=== PATIENT | male | born 1955 | race Two or more races ===

== ENCOUNTER 2020-12-04 09:30 | Inpatient (IN) | payer MEDICAID ==
[~2020-12-04] VITALS: Ht 175.3 cm; Wt 93.6 kg
[2020-12-04] MEDS ORDERED: SODIUM CHLORIDE 0.9% 1,000 ML IV ONE ×2 (10:15)
[2020-12-04] MEDS ORDERED: cefTRIAXone 1GM/50ML D5W 50 ML IV ONE (10:15)
[2020-12-04] MEDS ORDERED: CLINDAMYCIN 600MG IV 50 ML IV ONE (10:15)
[2020-12-04 10:46] LABS: Urine WBC None Seen /hpf (0 - 3)
[2020-12-04 10:56] LABS: Urine Bacteria NONE SEEN /hpf (None Seen); Urine Blood 1+ /uL (Negative); Urine Specific Gravity 1.003 (1.001-1.035)
[2020-12-04 10:59] LABS: Basophils # (auto) 0 10 ^3/uL (0-0.2); Basophils % (auto) 0.6 % (0.0-2.0); Eosinophils # (auto) 0 10 ^3/uL (0-0.8); Eosinophils % (auto) 0.2 % (0.0-7.0); Hematocrit 43.2 % (41.0-53.0); Lymphocytes # (auto) 1.4 10 ^3/uL (0.4-5.4); Lymphocytes % (auto) 19.9 % (10.0-50.0); Mean Corpuscular Hemoglobin 33.1 pg (28.0-32.0); Mean Corpuscular Hgb Conc. 34.7 g/dL (32.0-36.0); Mean Corpuscular Volume 95.3 fL (80.0-100.0); Monocytes # (auto) 0.6 10 ^3/uL (0-1.3); Monocytes % (auto) 8.8 % (0.0-12.0); Neutrophils % (auto) 70.5 % (37.0-80.0); Nucleated Red Blood Cells % 0.1 %; Platelet Count (auto) 282 10^3/uL (140-450); Red Blood Cells 4.53 10^6/uL (4.5-5.90); Red Cell Distribution Width 13.6 % (11.8-14.3)
[2020-12-04 11:07] LABS: INR 1.01 (0.9-1.15); Partial Thromboplastin Time 28.8 sec (23.0-31.2)
[2020-12-04 11:29] LABS: Anion Gap 11 (5-15); Blood Urea Nitrogen 3 mg/dL (7-18); Calcium 8.3 mg/dL (8.5-10.1); Carbon Dioxide 22 mmol/L (21-32); Chloride 105 mmol/L (98-107); Glucose 125 mg/dL (74-106); Potassium 3.5 mmol/L (3.5-5.1); Sodium 138 mmol/L (136-145)
[2020-12-04 11:34] LABS: Alanine Aminotransferase 24 U/L (16-61); Alkaline Phosphatase 88 U/L (45-117); Aspartate Aminotransferase 26 U/L (15-37); BUN/Creatinine Ratio 6.3; Bilirubin, Total 0.4 mg/dL (0.2-1.0); GFR African American 226 mL/min; GFR Non-African American 187 mL/min
[2020-12-04 11:35] LABS: Lactic Acid w/Reflex 2.1 mmol/L (0.4-2.0)
[2020-12-04] MEDS ORDERED: MORPHINE SULF INJ 2 MG/ML SYRINGE 1ML IV PRN ×3 (12:30→15:30)
[2020-12-04] MEDS ORDERED: NITROGLYCERIN 0.4 MG SL TAB SL PRN ×2 (12:30→15:30)
[2020-12-04] MEDS ORDERED: methylPREDNISolone SOD SUCC 125 MG/2 ML VL IV ONE (15:30)
[2020-12-04] MEDS ORDERED: ACETAMINOPHEN 325 MG TAB PO PRN (15:30)
[2020-12-04] MEDS ORDERED: IPRATROPIUM BROM 0.5 MG/2.5ML INH SOL NEB ONE (15:30)
[2020-12-04] MEDS ORDERED: ONDANSETRON HCL 4 MG/2 ML VIAL IV PRN (15:30)
[2020-12-04] MEDS ORDERED: VANCOMYCIN PER PHARMACY 0 MG IV SCH (15:30)
[2020-12-04] MEDS ORDERED: ALBUTEROL SULF 2.5 MG/0.5ML(0.5%) NEB SOLN NEB PRN (15:30)
[2020-12-04] MEDS ORDERED: HYDROcodone-ACET 5/325MG TAB PO PRN (15:30)
[2020-12-04] MEDS ORDERED: ALUM & MAG HYDROX-SIMETH LIQ(MAALOX) 30 ML PO PRN (15:30)
[2020-12-04] MEDS ORDERED: ALBUTEROL SULF 2.5 MG/0.5ML(0.5%) NEB SOLN NEB ONE (15:30)
[2020-12-04] MEDS ORDERED: hydrALAZINE HCL 20 MG/ML VL IV PRN (15:30)
[2020-12-04] MEDS ORDERED: PANTOPRAZOLE 40 MG/10 ML VIAL INJ IV ONE (15:30)
[2020-12-04] MEDS ORDERED: LORazepam 0.5 MG TAB PO PRN (15:30)
[2020-12-04] MEDS ORDERED: PIPERACILLIN-TAZOB 3.375GM 100 ML IV ONE (15:30)
[2020-12-04] MEDS ORDERED: DOCUSATE SOD 100 MG CAP PO PRN (15:30)
[2020-12-04 16:00] VITALS: BP 167/96
[2020-12-04] MEDS ORDERED: IPRATROPIUM BROM 0.5 MG/2.5ML INH SOL NEB PRN (16:00)
[2020-12-04] MEDS ORDERED: LISINOPRIL 20 MG TAB PO ONE (16:00)
[2020-12-04] MEDS ORDERED: LORazepam 2MG/ML-1ML VIAL IV PRN (16:00)
[2020-12-04 16:45] VITALS: BP 159/87
[2020-12-04] MEDS: SUCRALFATE 1 GM/10 ML ORAL SUSP PO SCH ×2 (17:00→22:00)
[2020-12-04] MEDS: SODIUM CHLORIDE 0.9% 1,000 ML IV SCH (17:14)
[2020-12-04] MEDS ORDERED: IPRATROPIUM BROM 0.5 MG/2.5ML INH SOL NEB SCH (18:00)
[2020-12-04 18:01] LABS: Cholesterol 163 mg/dL (< 200)
[2020-12-04 18:05] LABS: HDL Cholesterol 49 mg/dL (40-59); LDL Cholesterol 97 mg/dL (< 100); Triglycerides 152 mg/dL (< 150)
[2020-12-04 20:00] VITALS: BP 158/91
[2020-12-04] MEDS: VANCOMYCIN 1GM/250ML 250 ML IV SCH (20:00)
[2020-12-04 22:00] VITALS: BP 158/91
[2020-12-04] MEDS: methylPREDNISolone SOD SUCC 40 MG/ML VL IV SCH (22:00)
[2020-12-04] MEDS ORDERED: ATORVASTATIN 20 MG TAB PO SCH (22:00)
[2020-12-05 00:22] LABS: Amphetamine Screen, Urine NEGATIVE (NEGATIVE); Barbiturate Scree,Urine NEGATIVE (NEGATIVE); Benzodiazephine Screen, Urine NEGATIVE (NEGATIVE); Cannabinoid Screen, Urine NEGATIVE (NEGATIVE); Cocaine Screen, Urine NEGATIVE (NEGATIVE); Opiate Scree,Urine NEGATIVE (NEGATIVE); Phencyclidine Screen, Urine NEGATIVE (NEGATIVE)
[2020-12-05] MEDS: VANCOMYCIN 1GM/250ML 250 ML IV SCH (04:00)
[2020-12-05 05:00] VITALS: BP 167/85
[2020-12-05] MEDS: methylPREDNISolone SOD SUCC 40 MG/ML VL IV SCH (05:50)
[2020-12-05] MEDS: PIPERACILLIN-TAZOB 3.375GM 100 ML IV SCH ×2 (06:10)
[2020-12-05] MEDS: SUCRALFATE 1 GM/10 ML ORAL SUSP PO SCH (07:00)
[2020-12-05 07:14] LABS: Basophils # (auto) 0 10 ^3/uL (0-0.2); Basophils % (auto) 0.1 % (0.0-2.0); Eosinophils # (auto) 0 10 ^3/uL (0-0.8); Hematocrit 45.1 % (41.0-53.0); Hemoglobin 15.8 g/dL (13.5-17.5); Lymphocytes % (auto) 12.8 % (10.0-50.0); Mean Corpuscular Hemoglobin 33.6 pg (28.0-32.0); Mean Corpuscular Hgb Conc. 34.9 g/dL (32.0-36.0); Mean Corpuscular Volume 96.1 fL (80.0-100.0); Monocytes # (auto) 0.1 10 ^3/uL (0-1.3); Neutrophils % (auto) 86.1 % (37.0-80.0); Platelet Count (auto) 298 10^3/uL (140-450); Red Cell Distribution Width 13.6 % (11.8-14.3); White Blood Cell 8.2 10^3/uL (4.4-10.8)
[2020-12-05 07:18] LABS: INR 1.02 (0.9-1.15); Partial Thromboplastin Time 30.1 sec (23.0-31.2)
[2020-12-05 07:40] LABS: Chloride 102 mmol/L (98-107); Sodium 133 mmol/L (136-145)
[2020-12-05 07:57] LABS: Alanine Aminotransferase 22 U/L (16-61); Albumin 2.9 g/dL (3.4-5.0); Alkaline Phosphatase 95 U/L (45-117); Anion Gap 11 (5-15); Aspartate Aminotransferase 24 U/L (15-37); BUN/Creatinine Ratio 7.4; Bilirubin, Total 0.6 mg/dL (0.2-1.0); Blood Urea Nitrogen 5 mg/dL (7-18); Calcium 8.6 mg/dL (8.5-10.1); Carbon Dioxide 20 mmol/L (21-32); GFR African American 151 mL/min; GFR Non-African American 125 mL/min; Glucose 223 mg/dL (74-106); Magnesium 2.7 mg/dL (1.6-2.6); Phosphorus 2.6 mg/dL (2.5-4.90); Total Protein 7.8 g/dL (6.4-8.2)
[2020-12-05 09:03] VITALS: BP 176/99
[2020-12-05] MEDS: ASPirin 81 mg TAB PO SCH (09:07)
[2020-12-05] MEDS: LISINOPRIL 20 MG TAB PO SCH (09:08)
[2020-12-05] MEDS: SODIUM CHLORIDE 0.9% 1,000 ML IV SCH (09:12)
[2020-12-05] MEDS ORDERED: PANTOPRAZOLE 40 MG/10 ML VIAL INJ IV SCH (10:00)
[2020-12-05] MEDS ORDERED: LEVALBUTEROL HCL 1.25 MG/3 ML NEB NEB PRN (13:00)
[2020-12-05] MEDS ORDERED: PIPERACILLIN-TAZOB 3.375GM 100 ML IV SCH (13:00)
[2020-12-05] MEDS ORDERED: chlordiazePOXIDE HCL 5 MG CAP PO PRN (13:00)
[2020-12-05] MEDS ORDERED: METOPROLOL TARTRATE 25 MG TAB PO ONE (13:00)
[2020-12-05] MEDS: NICOTINE 14 MG/24HR TOPICAL PATCH TD SCH (13:02)
[2020-12-05 13:07] VITALS: BP 144/83
[2020-12-05] MEDS: cefTRIAXone 1GM/50ML D5W 50 ML IV SCH (13:52)
[2020-12-05] MEDS: CLINDAMYCIN 600MG IV 50 ML IV SCH ×2 (13:56→22:00)
[2020-12-05] MEDS ORDERED: THIAMINE HCL 100 MG TAB PO ONE (14:15)
[2020-12-05 16:30] VITALS: BP 138/90
[2020-12-05] MEDS: IPRATROPIUM BROM 0.5 MG/2.5ML INH SOL NEB SCH (18:29)
[2020-12-05] MEDS: BUDESONIDE (INHALATION) 0.5 MG/2 ML NEB NEB SCH (18:30)
[2020-12-05] MEDS: LEVALBUTEROL HCL 1.25 MG/3 ML NEB NEB SCH (18:30)
[2020-12-05 20:00] VITALS: BP 126/75
[2020-12-05 22:00] VITALS: BP 126/75
[2020-12-05] MEDS: ATORVASTATIN 20 MG TAB PO SCH (22:00)
[2020-12-05] MEDS: METOPROLOL TARTRATE 25 MG TAB PO SCH (22:00)
[2020-12-06 05:00] VITALS: BP 150/97
[2020-12-06] MEDS: CLINDAMYCIN 600MG IV 50 ML IV SCH ×3 (06:00→22:00)
[2020-12-06 06:33] LABS: Basophils # (auto) 0 10 ^3/uL (0-0.2); Basophils % (auto) 0.3 % (0.0-2.0); Eosinophils # (auto) 0 10 ^3/uL (0-0.8); Hematocrit 43.9 % (41.0-53.0); Hemoglobin 15.4 g/dL (13.5-17.5); Lymphocytes # (auto) 1.8 10 ^3/uL (0.4-5.4); Lymphocytes % (auto) 17.6 % (10.0-50.0); Mean Corpuscular Hemoglobin 33.4 pg (28.0-32.0); Mean Corpuscular Volume 95.4 fL (80.0-100.0); Monocytes # (auto) 0.9 10 ^3/uL (0-1.3); Monocytes % (auto) 8.4 % (0.0-12.0); Neutrophils # (auto) 7.7 10 ^3/uL (1.6-8.6); Neutrophils % (auto) 73.7 % (37.0-80.0); Nucleated Red Blood Cells % 0.1 %; Platelet Count (auto) 289 10^3/uL (140-450); Red Cell Distribution Width 13.4 % (11.8-14.3); White Blood Cell 10.4 10^3/uL (4.4-10.8)
[2020-12-06 06:47] LABS: INR 1.02 (0.9-1.15); Partial Thromboplastin Time 27.9 sec (23.0-31.2)
[2020-12-06 06:50] LABS: Calcium 8.6 mg/dL (8.5-10.1); Potassium 3.7 mmol/L (3.5-5.1)
[2020-12-06 06:52] LABS: BUN/Creatinine Ratio 15.1
[2020-12-06] MEDS: cloNIDine HCL 0.1 MG TAB PO PRN (08:27)
[2020-12-06 09:00] VITALS: BP 143/82
[2020-12-06] MEDS: cefTRIAXone 1GM/50ML D5W 50 ML IV SCH (09:00)
[2020-12-06] MEDS: LEVALBUTEROL HCL 1.25 MG/3 ML NEB NEB SCH ×2 (09:56→18:39)
[2020-12-06] MEDS: BUDESONIDE (INHALATION) 0.5 MG/2 ML NEB NEB SCH ×2 (09:56→18:39)
[2020-12-06] MEDS: IPRATROPIUM BROM 0.5 MG/2.5ML INH SOL NEB SCH ×2 (09:56→18:39)
[2020-12-06] MEDS: ASPirin 81 mg TAB PO SCH (10:00)
[2020-12-06] MEDS: THIAMINE HCL 100 MG TAB PO SCH (10:00)
[2020-12-06] MEDS: LISINOPRIL 20 MG TAB PO SCH (10:00)
[2020-12-06] MEDS: METOPROLOL TARTRATE 25 MG TAB PO SCH ×2 (10:00→22:00)
[2020-12-06] MEDS: NICOTINE 14 MG/24HR TOPICAL PATCH TD SCH (10:00)
[2020-12-06] MEDS ORDERED: MIDAZOLAM HCL 1MG/1ML-2 ML VIAL ONE (10:48)
[2020-12-06] MEDS ORDERED: LIDOCAINE 2%HCL (LOCAL ANESTH.) INJ 20ML MDV ONE (10:48)
[2020-12-06] MEDS ORDERED: fentaNYL CITRATE 100 MCG/2 ML VL ONE (10:48)
[2020-12-06] MEDS ORDERED: SODIUM CHL 0.9% 0 ML ONE (10:48)
[2020-12-06] MEDS ORDERED: ANGIOMAX 250 MG VIAL IV ONE (10:48)
[2020-12-06 13:00] VITALS: BP 131/75
[2020-12-06] MEDS: SODIUM CHLOR 0.9% PF (SALINE LOCK) 10ML VIAL/SYR IV SCH ×2 (15:43→22:00)
[2020-12-06 17:00] VITALS: BP 134/71
[2020-12-06 20:00] VITALS: BP 148/77
[2020-12-06 21:29] VITALS: BP 148/77
[2020-12-06] MEDS: ATORVASTATIN 20 MG TAB PO SCH (22:00)
[2020-12-07 04:56] VITALS: BP 140/85
[2020-12-07] MEDS: CLINDAMYCIN 600MG IV 50 ML IV SCH ×3 (05:54→22:16)
[2020-12-07] MEDS: SODIUM CHLOR 0.9% PF (SALINE LOCK) 10ML VIAL/SYR IV SCH ×3 (05:55→22:16)
[2020-12-07 09:00] VITALS: BP 154/92
[2020-12-07] MEDS: cefTRIAXone 1GM/50ML D5W 50 ML IV SCH (09:17)
[2020-12-07] MEDS: ASPirin 81 mg TAB PO SCH (09:17)
[2020-12-07] MEDS: METOPROLOL TARTRATE 25 MG TAB PO SCH ×2 (09:18→22:16)
[2020-12-07] MEDS: THIAMINE HCL 100 MG TAB PO SCH (09:18)
[2020-12-07] MEDS: LISINOPRIL 20 MG TAB PO SCH (09:19)
[2020-12-07] MEDS: NICOTINE 14 MG/24HR TOPICAL PATCH TD SCH (09:20)
[2020-12-07] MEDS: BUDESONIDE (INHALATION) 0.5 MG/2 ML NEB NEB SCH ×2 (10:04→21:55)
[2020-12-07] MEDS: IPRATROPIUM BROM 0.5 MG/2.5ML INH SOL NEB SCH ×2 (10:04→21:55)
[2020-12-07] MEDS: LEVALBUTEROL HCL 1.25 MG/3 ML NEB NEB SCH ×2 (10:04→21:55)
[2020-12-07] MEDS ORDERED: LIDOCAINE 1% (LOCAL ANESTH.) PF 5ml SDV ID ONE (11:30)
[2020-12-07] MEDS ORDERED: ceFAZolin 1GM/50ML 50 ML IV ONE (12:14)
[2020-12-07 12:36] VITALS: BP 135/82
[2020-12-07 16:27] VITALS: BP 135/82
[2020-12-07 16:42] VITALS: BP 135/77
[2020-12-07 22:00] VITALS: BP 146/92
[2020-12-07] MEDS: ATORVASTATIN 20 MG TAB PO SCH (22:16)
[2020-12-08 05:00] VITALS: BP 135/73
[2020-12-08] MEDS: CLINDAMYCIN 600MG IV 50 ML IV SCH ×3 (06:21→22:37)
[2020-12-08] MEDS: SODIUM CHLOR 0.9% PF (SALINE LOCK) 10ML VIAL/SYR IV SCH ×3 (06:21→22:37)
[2020-12-08 08:49] VITALS: BP 145/83
[2020-12-08] MEDS: cefTRIAXone 1GM/50ML D5W 50 ML IV SCH (08:54)
[2020-12-08] MEDS: BUDESONIDE (INHALATION) 0.5 MG/2 ML NEB NEB SCH ×2 (10:00→22:47)
[2020-12-08] MEDS: IPRATROPIUM BROM 0.5 MG/2.5ML INH SOL NEB SCH ×2 (10:00→22:47)
[2020-12-08] MEDS: ASPirin 81 mg TAB PO SCH (10:00)
[2020-12-08] MEDS: LEVALBUTEROL HCL 1.25 MG/3 ML NEB NEB SCH ×2 (10:00→22:47)
[2020-12-08] MEDS ORDERED: ceFAZolin 1GM/50ML 50 ML IV ONE (10:07)
[2020-12-08] MEDS ORDERED: LIDOCAINE 2% (LOCAL ANESTH.) PF 5ml SDV ONE (10:38)
[2020-12-08] MEDS ORDERED: MIDAZOLAM HCL 1MG/1ML-2 ML VIAL ONE (10:38)
[2020-12-08] MEDS ORDERED: KETAMINE HCL 10 ML ONE (10:38)
[2020-12-08] MEDS ORDERED: ONDANSETRON HCL 4 MG/2 ML VIAL ONE (10:38)
[2020-12-08] MEDS ORDERED: PROPOFOL 10 MG/ML 20 ML IV ONE (10:38)
[2020-12-08] MEDS ORDERED: GLYCOPYRROLATE 0.2 MG/ML 1ML VIAL ONE (10:38)
[2020-12-08] MEDS ORDERED: ceFAZolin 1GM VL ONE (11:44)
[2020-12-08] MEDS ORDERED: fentaNYL CITRATE 100 MCG/2 ML VL IV ONE (11:48)
[2020-12-08] MEDS ORDERED: ALBUTEROL SULF 2.5 MG/0.5ML(0.5%) NEB SOLN NEB ONE (12:30)
[2020-12-08] MEDS ORDERED: ONDANSETRON HCL 4 MG/2 ML VIAL IV PRN (12:30)
[2020-12-08] MEDS ORDERED: HYDROmorphone HCL 2 MG/ML VL IV PRN (12:30)
[2020-12-08 13:30] VITALS: BP 138/93
[2020-12-08] MEDS: THIAMINE HCL 100 MG TAB PO SCH (13:50)
[2020-12-08] MEDS: METOPROLOL TARTRATE 25 MG TAB PO SCH ×2 (13:51→22:38)
[2020-12-08] MEDS: LISINOPRIL 20 MG TAB PO SCH (13:51)
[2020-12-08] MEDS: NICOTINE 14 MG/24HR TOPICAL PATCH TD SCH (13:52)
[2020-12-08 16:34] VITALS: BP 132/87
[2020-12-08 22:00] VITALS: BP 139/80
[2020-12-08] MEDS: ATORVASTATIN 20 MG TAB PO SCH (22:37)
[2020-12-09 05:00] VITALS: BP 145/91
[2020-12-09] MEDS: CLINDAMYCIN 600MG IV 50 ML IV SCH ×3 (06:41→21:09)
[2020-12-09] MEDS: SODIUM CHLOR 0.9% PF (SALINE LOCK) 10ML VIAL/SYR IV SCH ×3 (06:41→21:10)
[2020-12-09] MEDS: IPRATROPIUM BROM 0.5 MG/2.5ML INH SOL NEB SCH (07:16)
[2020-12-09] MEDS: LEVALBUTEROL HCL 1.25 MG/3 ML NEB NEB SCH (07:16)
[2020-12-09] MEDS: BUDESONIDE (INHALATION) 0.5 MG/2 ML NEB NEB SCH (07:16)
[2020-12-09 07:42] VITALS: BP 125/82
[2020-12-09 08:50] VITALS: BP 125/82
[2020-12-09] MEDS: THIAMINE HCL 100 MG TAB PO SCH (10:52)
[2020-12-09] MEDS: ASPirin 81 mg TAB PO SCH (10:52)
[2020-12-09] MEDS: LISINOPRIL 20 MG TAB PO SCH (10:55)
[2020-12-09] MEDS: METOPROLOL TARTRATE 25 MG TAB PO SCH ×2 (10:56→21:10)
[2020-12-09] MEDS: cefTRIAXone 1GM/50ML D5W 50 ML IV SCH (10:57)
[2020-12-09] MEDS: NICOTINE 14 MG/24HR TOPICAL PATCH TD SCH (10:57)
[2020-12-09 12:24] VITALS: BP 136/64
[2020-12-09] MEDS: cloNIDine HCL 0.1 MG TAB PO PRN (16:09)
[2020-12-09 16:39] VITALS: BP 160/89
[2020-12-09] MEDS: ATORVASTATIN 20 MG TAB PO SCH (21:10)
[2020-12-09 21:12] VITALS: BP 130/75
[2020-12-10] MEDS: CLINDAMYCIN 600MG IV 50 ML IV SCH ×3 (05:15→21:22)
[2020-12-10 05:20] VITALS: BP 138/78
[2020-12-10] MEDS: SODIUM CHLOR 0.9% PF (SALINE LOCK) 10ML VIAL/SYR IV SCH ×3 (05:20→21:22)
[2020-12-10 05:30] VITALS: BP 138/78
[2020-12-10 08:00] VITALS: BP 131/80
[2020-12-10] MEDS: NICOTINE 14 MG/24HR TOPICAL PATCH TD SCH (10:00)
[2020-12-10] MEDS: THIAMINE HCL 100 MG TAB PO SCH (10:37)
[2020-12-10] MEDS: METOPROLOL TARTRATE 25 MG TAB PO SCH ×2 (10:37→21:36)
[2020-12-10] MEDS: LISINOPRIL 20 MG TAB PO SCH (10:37)
[2020-12-10] MEDS: ASPirin 81 mg TAB PO SCH (10:37)
[2020-12-10] MEDS: cefTRIAXone 1GM/50ML D5W 50 ML IV SCH (10:38)
[2020-12-10 12:00] VITALS: BP 135/78
[2020-12-10 16:00] VITALS: BP 126/65
[2020-12-10] MEDS: ATORVASTATIN 20 MG TAB PO SCH (21:21)
[2020-12-10 22:00] VITALS: BP 134/79
[2020-12-11 05:00] VITALS: BP 127/80
[2020-12-11] MEDS: SODIUM CHLOR 0.9% PF (SALINE LOCK) 10ML VIAL/SYR IV SCH ×2 (05:12→14:20)
[2020-12-11] MEDS: CLINDAMYCIN 600MG IV 50 ML IV SCH (05:12)
[2020-12-11 05:22] LABS: Basophils # (auto) 0 10 ^3/uL (0-0.2); Basophils % (auto) 0.5 % (0.0-2.0); Eosinophils # (auto) 0.1 10 ^3/uL (0-0.8); Eosinophils % (auto) 1.5 % (0.0-7.0); Hematocrit 43.6 % (41.0-53.0); Hemoglobin 15.3 g/dL (13.5-17.5); Lymphocytes % (auto) 11.1 % (10.0-50.0); Mean Corpuscular Hemoglobin 33.7 pg (28.0-32.0); Mean Corpuscular Volume 96.5 fL (80.0-100.0); Monocytes # (auto) 0.6 10 ^3/uL (0-1.3); Neutrophils # (auto) 7.5 10 ^3/uL (1.6-8.6); Neutrophils % (auto) 80.9 % (37.0-80.0); Platelet Count (auto) 209 10^3/uL (140-450); Red Blood Cells 4.52 10^6/uL (4.5-5.90); Red Cell Distribution Width 13.5 % (11.8-14.3); White Blood Cell 9.3 10^3/uL (4.4-10.8)
[2020-12-11 05:42] LABS: Potassium 3.9 mmol/L (3.5-5.1)
[2020-12-11 05:53] LABS: Albumin 2.9 g/dL (3.4-5.0); BUN/Creatinine Ratio 19.4; Bilirubin, Total 0.6 mg/dL (0.2-1.0); Calcium 8.4 mg/dL (8.5-10.1); Total Protein 7.1 g/dL (6.4-8.2)
[2020-12-11] MEDS ORDERED: AMPICILLIN INJ 1 GM in SODIUM CHL 0.9% 50 ML IV SCH ×4 (07:00→08:00)
[2020-12-11 08:00] VITALS: BP 139/75
[2020-12-11] MEDS: LISINOPRIL 20 MG TAB PO SCH (09:40)
[2020-12-11] MEDS: ASPirin 81 mg TAB PO SCH (09:40)
[2020-12-11] MEDS: METOPROLOL TARTRATE 25 MG TAB PO SCH (09:41)
[2020-12-11] MEDS: NICOTINE 14 MG/24HR TOPICAL PATCH TD SCH (09:42)
[2020-12-11] MEDS: THIAMINE HCL 100 MG TAB PO SCH (09:43)
[2020-12-11] MEDS ORDERED: DAPTOmycin 500 MG in SODIUM CHL 0.9% 50 ML IV SCH (10:48)
[2020-12-11] MEDS ORDERED: ATOR20TA50 PO (12:54)
[2020-12-11] MEDS ORDERED: MULTTAB75 PO (12:54)
[2020-12-11] MEDS ORDERED: LISI20TA28 PO (12:54)
[2020-12-11] MEDS ORDERED: ASPI1CHW15 PO (12:54)
[2020-12-11] MEDS ORDERED: METO25TA36 PO (12:54)
[2020-12-11 13:00] VITALS: BP 131/74
== END 2020-12-11 18:30 | disposition home health service (06) | DRG 361 ==
LOC: ER 09:30 → EDBD 12:29 → TELE 12:29 → TELE-WESTW 16:04 → WEST WING 12-09 16:53
PROVIDERS: ADMIT Hospitalist; ATTEND Internal Medicine
PROC: B41GYZZ Fluoroscopy of Left Lower Extremity Arteries using Other Contrast (ICD-10-PCS; 2020-12-06)
PROC: B41FYZZ Fluoroscopy of Right Lower Extremity Arteries using Other Contrast (ICD-10-PCS; 2020-12-06)
PROC: B54MZZA Ultrasonography of Right Upper Extremity Veins, Guidance (ICD-10-PCS; 2020-12-07)
PROC: 05HY33Z Insertion of Infusion Device into Upper Vein, Percutaneous Approach (ICD-10-PCS; 2020-12-07)
PROC: 0JBN0ZZ Excision of Right Lower Leg Subcutaneous Tissue and Fascia, Open Approach (ICD-10-PCS; 2020-12-08)
PROC: 0HRKXK3 Replacement of Right Lower Leg Skin with Nonautologous Tissue Substitute, Full Thickness, External Approach (ICD-10-PCS; principal; 2020-12-08 11:48)
DX: L03.115 Cellulitis of right lower limb (principal); J96.00 Acute respiratory failure, unspecified whether with hypoxia or hypercapnia; L97.819 Non-pressure chronic ulcer of other part of right lower leg with unspecified severity; E44.0 Moderate protein-calorie malnutrition; I70.202 Unspecified atherosclerosis of native arteries of extremities, left leg; J44.1 Chronic obstructive pulmonary disease with (acute) exacerbation; Z20.822 Contact with and (suspected) exposure to COVID-19; I87.2 Venous insufficiency (chronic) (peripheral); E66.9 Obesity, unspecified; E78.5 Hyperlipidemia, unspecified; I10 Essential (primary) hypertension; M86.671 Other chronic osteomyelitis, right ankle and foot; F17.210 Nicotine dependence, cigarettes, uncomplicated; F10.229 Alcohol dependence with intoxication, unspecified; I87.8 Other specified disorders of veins; B95.2 Enterococcus as the cause of diseases classified elsewhere; B95.61 Methicillin susceptible Staphylococcus aureus infection as the cause of diseases classified elsewhere; Z68.28 Body mass index [BMI] 28.0-28.9, adult; Z71.6 Tobacco abuse counseling; Z79.899 Other long term (current) drug therapy; Y90.5 Blood alcohol level of 100-119 mg/100 ml
CPT/HCPCS: 36415; 36569; 36600; 71045; 73700; 75716; 80048; 80053; 80061; 80307; 80320; 81001; 82805; 83036; 83605; 83735; 83880; 84100; 84443; 84484; 85025; 85610; 85652; 85730; 86850; 86900; 86901; 87040; 87070; 87075; 87077; 87086; 87186; 87205; 87426; 93306; 93925; 93971; 94640; 96365; 96368; 99152; C9113; G0378; J0690; J0696; J2001; J2250; J2405; J2543; J2704; J3490

== ENCOUNTER 2021-01-10 07:55 | Inpatient (IN) | payer MEDICAID ==
[~2021-01-10] VITALS: Ht 172.7 cm; Wt 96.8 kg
[~2021-01-10 07:55] MED LIST: ASPI1CHW15 PO; ATOR20TA50 PO; LISI20TA28 PO; METO25TA36 PO; MULTTAB75 PO
[2021-01-10] MEDS ORDERED: cefTRIAXone 1GM/50ML D5W 50 ML IV ONE (09:45)
[2021-01-10] MEDS ORDERED: SODIUM CHLORIDE 0.9% 1,000 ML IV ONE (09:45)
[2021-01-10 10:42] LABS: Basophils # (auto) 0.1 10 ^3/uL (0-0.2); Basophils % (auto) 0.8 % (0.0-2.0); Eosinophils # (auto) 0.1 10 ^3/uL (0-0.8); Eosinophils % (auto) 1.7 % (0.0-7.0); Hematocrit 40.7 % (41.0-53.0); Hemoglobin 14.5 g/dL (13.5-17.5); Lymphocytes # (auto) 1.5 10 ^3/uL (0.4-5.4); Lymphocytes % (auto) 18.5 % (10.0-50.0); Mean Corpuscular Hemoglobin 33.4 pg (28.0-32.0); Mean Corpuscular Hgb Conc. 35.6 g/dL (32.0-36.0); Mean Corpuscular Volume 93.8 fL (80.0-100.0); Monocytes # (auto) 0.5 10 ^3/uL (0-1.3); Monocytes % (auto) 6.6 % (0.0-12.0); Neutrophils % (auto) 72.4 % (37.0-80.0); Platelet Count (auto) 206 10^3/uL (140-450); Red Blood Cells 4.33 10^6/uL (4.5-5.90); White Blood Cell 8.2 10^3/uL (4.4-10.8)
[2021-01-10 10:59] LABS: INR 1.02 (0.9-1.15); Partial Thromboplastin Time 28.2 sec (23.0-31.2)
[2021-01-10 11:00] LABS: Albumin 3.3 g/dL (3.4-5.0); Calcium 8.9 mg/dL (8.5-10.1); Magnesium 2.5 mg/dL (1.6-2.6); Potassium 3.8 mmol/L (3.5-5.1)
[2021-01-10 11:04] LABS: BUN/Creatinine Ratio 13.1; Bilirubin, Total 0.5 mg/dL (0.2-1.0); Total Protein 7.7 g/dL (6.4-8.2)
[2021-01-10] MEDS ORDERED: NITROGLYCERIN 0.4 MG SL TAB SL PRN (13:15)
[2021-01-10] MEDS ORDERED: ONDANSETRON HCL 4 MG/2 ML VIAL IV PRN ×2 (13:15→14:45)
[2021-01-10] MEDS ORDERED: ACETAMINOPHEN 500 MG TAB PO PRN (13:15)
[2021-01-10] MEDS ORDERED: MORPHINE SULF INJ 2 MG/ML SYRINGE 1ML IV PRN ×3 (13:15→14:45)
[2021-01-10] MEDS ORDERED: HYDROcodone-ACET 5/325MG TAB PO PRN (13:15)
[2021-01-10] MEDS ORDERED: hydrALAZINE HCL 20 MG/ML VL IV PRN (13:30)
[2021-01-10] MEDS: CLINDAMYCIN 300MG IV 50 ML IV SCH ×2 (14:25→22:15)
[2021-01-10] MEDS ORDERED: ceFAZolin 1GM VL ONE (14:25)
[2021-01-10] MEDS ORDERED: HYDROmorphone HCL 2 MG/ML VL IV PRN (14:45)
[2021-01-10] MEDS ORDERED: LABETALOL HCL 5 MG/ML 4ML SYRINGE IV PRN (14:45)
[2021-01-10] MEDS ORDERED: MIDAZOLAM HCL 1MG/1ML-2 ML VIAL IV PRN (14:45)
[2021-01-10] MEDS ORDERED: ePHEDrine SULFATE 50 MG/ML AMP IV PRN (14:45)
[2021-01-10] MEDS ORDERED: MIDAZOLAM HCL 1MG/1ML-2 ML VIAL ONE (14:51)
[2021-01-10] MEDS ORDERED: MEPERIDINE HCL (25 MG/ML) 1ML VIAL ONE (14:51)
[2021-01-10] MEDS ORDERED: fentaNYL CITRATE 100 MCG/2 ML VL ONE (14:51)
[2021-01-10] MEDS ORDERED: PROPOFOL 10 MG/ML 20 ML IV ONE (15:00)
[2021-01-10 17:00] VITALS: BP 153/88
[2021-01-10 22:00] VITALS: BP 121/80
[2021-01-10] MEDS: ATORVASTATIN 20 MG TAB PO SCH (22:15)
[2021-01-10 23:20] LABS: Urine Amorphous Crystal MOD /hpf (None Seen); Urine Bacteria FEW /hpf (None Seen); Urine Blood 1+ /uL (Negative); Urine Specific Gravity 1.017 (1.001-1.035); Urine WBC <1 /hpf (0 - 3)
[2021-01-10 23:22] LABS: Alcohol, Urine < 3.0 mg/dL (0-10); Amphetamine Screen, Urine NEGATIVE (NEGATIVE); Barbiturate Scree,Urine NEGATIVE (NEGATIVE); Benzodiazephine Screen, Urine POSITIVE (NEGATIVE); Cannabinoid Screen, Urine NEGATIVE (NEGATIVE); Cocaine Screen, Urine NEGATIVE (NEGATIVE); Opiate Scree,Urine NEGATIVE (NEGATIVE); Phencyclidine Screen, Urine NEGATIVE (NEGATIVE)
[2021-01-11 05:00] VITALS: BP 131/77
[2021-01-11] MEDS: CLINDAMYCIN 300MG IV 50 ML IV SCH ×3 (05:29→21:33)
[2021-01-11 08:41] VITALS: BP 139/78
[2021-01-11] MEDS: LISINOPRIL 20 MG TAB PO SCH (09:15)
[2021-01-11] MEDS: FAMOTIDINE 20 MG TAB PO SCH (09:15)
[2021-01-11 12:36] VITALS: BP 140/79
[2021-01-11 16:54] VITALS: BP 148/75
[2021-01-11] MEDS: ATORVASTATIN 20 MG TAB PO SCH (21:33)
[2021-01-11 22:00] VITALS: BP 150/78
[2021-01-12 05:00] VITALS: BP 134/89
[2021-01-12] MEDS: CLINDAMYCIN 300MG IV 50 ML IV SCH ×3 (05:36→21:38)
[2021-01-12 08:30] VITALS: BP 141/78
[2021-01-12] MEDS: FAMOTIDINE 20 MG TAB PO SCH (08:48)
[2021-01-12] MEDS: LISINOPRIL 20 MG TAB PO SCH (08:49)
[2021-01-12 12:30] VITALS: BP 139/77
[2021-01-12 16:49] VITALS: BP 151/82
[2021-01-12] MEDS: ATORVASTATIN 20 MG TAB PO SCH (21:38)
[2021-01-12 22:00] VITALS: BP 123/70
[2021-01-13 05:00] VITALS: BP 130/89
[2021-01-13] MEDS: CLINDAMYCIN 300MG IV 50 ML IV SCH (05:14)
[2021-01-13 08:00] VITALS: BP 119/77
[2021-01-13 09:00] VITALS: BP 119/77
[2021-01-13] MEDS: FAMOTIDINE 20 MG TAB PO SCH (09:20)
[2021-01-13] MEDS: LISINOPRIL 20 MG TAB PO SCH (09:20)
[2021-01-13] MEDS ORDERED: levoFLOXacin 500MG 100 ML IV SCH (10:00)
[2021-01-13 12:40] VITALS: BP 106/71
== END 2021-01-13 16:00 | disposition home health service (06) | DRG 361 ==
LOC: ER 07:55 → EDBD 13:10 → OVERFLOW 13:10 → WEST WING 14:32 → OVERFLOW 14:32 → WEST WING 16:36
PROVIDERS: ADMIT Nurse Practitioner Acute Care; ATTEND Family Medicine
PROC: 0HRKXK3 Replacement of Right Lower Leg Skin with Nonautologous Tissue Substitute, Full Thickness, External Approach (ICD-10-PCS; 2021-01-10)
PROC: 0JBN0ZZ Excision of Right Lower Leg Subcutaneous Tissue and Fascia, Open Approach (ICD-10-PCS; 2021-01-10)
PROC: 02HV33Z Insertion of Infusion Device into Superior Vena Cava, Percutaneous Approach (ICD-10-PCS; principal; 2021-01-10 14:55)
DX: L03.115 Cellulitis of right lower limb (principal); J96.20 Acute and chronic respiratory failure, unspecified whether with hypoxia or hypercapnia; I10 Essential (primary) hypertension; Z20.822 Contact with and (suspected) exposure to COVID-19; L97.919 Non-pressure chronic ulcer of unspecified part of right lower leg with unspecified severity; I87.2 Venous insufficiency (chronic) (peripheral); F10.20 Alcohol dependence, uncomplicated; E78.1 Pure hyperglyceridemia; E66.9 Obesity, unspecified; M86.661 Other chronic osteomyelitis, right tibia and fibula; B96.5 Pseudomonas (aeruginosa) (mallei) (pseudomallei) as the cause of diseases classified elsewhere; F17.210 Nicotine dependence, cigarettes, uncomplicated; J42 Unspecified chronic bronchitis; Z79.899 Other long term (current) drug therapy; Z68.31 Body mass index [BMI] 31.0-31.9, adult
CPT/HCPCS: 36415; 71046; 80053; 80307; 81001; 83036; 83735; 85025; 85610; 85730; 87070; 87075; 87076; 87077; 87081; 87186; 87205; 87426; 93005; 96365; 96375; G0378; J0690; J0696; J1956; J2250; J2704; J3490